=== PATIENT | female | born 1985 | race Caucasian/White ===

== ENCOUNTER 2025-02-18 08:00 | Outpatient (RCR) | payer BC, SELFPAY ==
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
--- NOTE | 2025-02-18 16:16 | HP.PTDCSUM ---
Discharge Summary D/C summary: It has been my pleasure to treat DEBBIE VERDE referred by Dr. Jamia Cunningham MD, with the diagnosis of INCOMPLETE UTEROVAGINAL PROLAPSE for a total of 11 visit(s). Discharge Date: 02/18/25 Please see the following information for a summary of their discharge status. Subjective Subjective: PATIENT STATES SHE IS DOING GOOD. NO URINARY LEAKAGE. PATIENT REPORTS SHE STILL ISN'T HAVING ANY BACK FLARE UPS EITHER. PATIENT REPORTS SHE ORDERED A HEEL LIFT AND SHE IS GOING TO SEE HOW THAT GOES. STILL STRUGGLING TO GET TO RECOMMENDED FLUID INTAKE. HEP IS GOING GOOD. Pain LOW BACK: Pain Intensity (Out of 10): 0 Overall Improvement % Improvement: 100 Objective Objective/Function: PATIENT WAS SEEN TODAY FOR RE-ASSESSMENT OF PROGRESS TOWARD THE SET PT GOALS AND THE NEED FOR FURTHER PHYSICAL THERAPY VS READINESS FOR DISCHARGE. THIS PATIENT HAS RESPONDED REALLY WELL TO PELVIC FLOOR THERAPY AND IS APPROPRIATE FOR AND AGREEABLE TO DISCHARGE AT THIS POINT. SHE IS NOW INDEP WITH A HOME EX PROGRAM AND WILL FOLLOW UP WITH HER PHYSICIAN NEEDED. SHE ALSO RESPONDED WELL TO THE SHOE LIFT FOR LLE WITH MORE NORMAIZED GAIT AND STANCE DEMONSTRATED IMMEDIATELY. THE 1 LIFT ONLY PARTIALLY CORRECTS HER DEVIATION BUT PATIENT IS EAGER TO TRY THIS TO SEE THE EFFECT AND WILL FOLLOW UP WITH HER PCP FOR FURTHER CORRECTION DESIRED. FUNCTIONAL SCREEN: Pelvic Organ Prolapse Distress Inventory Score: 0 Colorectal-Anal Distress Inventory: 0 Urogenital Distress Inventory Score: 1 Goals Goal 1:: INCREASE PELVIC FLOOR/CORE STRENGTH FOR BETTER ORGAN SUPPORT, DECREASE C/O LOW BACK PAIN AND IMROVE URINARY INCONTINENCE Goal Progress: Goal Met Goal 2:: PATIENT WILL DEVELOP HEALTHY FLUID INTAKE HABITS WITH FLUID INTAKE OF ? BODY WEIGHT IN OUNCES PER DAY AND 2/3 BEING WATER. Goal Progress: Progressing Goal 3:: DECREASE URINARY LEAKAGE EPISODES TO ONE OR LESS PER MONTH. Goal Progress: Goal Met Goal 4:: PATIENT WILL COMMUNICATE/DEMONSTRATE KNOWLEDGE OF HEALTHY POSTURE AND BACK HABITS TO PROMOTE GOOD PELVIC HEALTH. Goal Progress: Goal Met Goal 5:: PATIENT WILL COMMUNICATE/DEMONSTRATE KNOWLEDGE OF PROPER MANAGEMENT OF INTRA-ABDOMINAL PRESSURE TO REDUCE PRESSURE DOWN ON PELVIC FLOOR DURING ADL'S. Goal Progress: Goal Met Goal 6:: PATIENT WILL BE INDEP WITH A HEP/HOME INSTRUCTIONS FOR CONTINUED IMPROVEMENT ONCE FORMAL PHYSICAL THERAPY CONCLUDES. Goal Progress: Goal Met Plan Plan: D/C TO INDEP PROGRAM. PATIENT AGREEABLE. D/C Information d/c sentence: If there are questions or concerns regarding this patient's physical therapy, please feel free to call me at [phone]. Thank you for the referral of this patient. Sincerely, Barbie Ricks, PT, Cert MDT Balance/Gait/Functional tests Improvement % Improvement: 100
== END 2025-02-18 19:00 | disposition home or self-care (01) ==
LOC: PT 08:00
PROVIDERS: PCP Family Medicine; Referring Provider Urology; Visit Provider Urology
DX: N81.2 Incomplete uterovaginal prolapse (principal)
CPT/HCPCS: 97110; 97162; 97530